=== PATIENT | male | born 1985 | race Caucasian/White ===

== ENCOUNTER 2019-08-15 13:40 | Emergency (ER) | payer OTHER, SELFPAY ==
--- NOTE | ~2019-08-15 | XR_ITS ---
EXAMINATION: XR chest 2V DATE: 08/15/2019 15:06 INDICATION: 5 days of cough and wheezing TECHNIQUE: frontal and lateral views of the chest were obtained. COMPARISON: Chest radiograph dated 05/02/2019 FINDINGS: Interval resolution of prior left lower lobe opacities which may have represented pneumonia. Residual minimal linear atelectasis/scarring more anteriorly at the lingula. No new airspace opacities, pulmo nary edema, pleural effusion or pneumothorax. The cardiomediastinal silhouette is normal. Likely chol ecystectomy clips in the upper abdomen. Mild thoracolumbar spondylosis. IMPRESSION: 1. Unchanged minimal linear discoid atelectasis/scarring at the lingula. No other acute cardiopulmona ry disease. Reviewed, dictated and finalized at location A. HONING MACHINE SET UP OPERATOR IMPRESSION: 1. Unchanged minimal linear discoid atelectasis/scarring at the lingula. No oth er acute cardiopulmonary disease.
[2019-08-15 13:53] VITALS: BP 104/78; PULSE 90; RESP 20; TEMP 36.9; O2SAT 97
--- NOTE | 2019-08-15 14:59 | ED.GENADULT ---
HPI - General Adult General Chief complaint: Upper Respiratory Infection Stated complaint: Sore throat/Congestion/Body aches Time Seen by Provider: 08/15/19 14:59 Source: patient and RN notes reviewed Mode of arrival: ambulatory Limitations: no limitations History of Present Illness HPI narrative: 33-year-old male who presents to express care with complaints of sore throat, body aches, wheezing and cough since . Patient states in the last 24 to 48 hours he is felt more short of breath. Patient states that he has been exposed to influenza at work,many coworkers ill. Patient states that his cough is productive of yellow mucous, has noticed wheezing at times but denies any acute respiratory difficulty, SAO2 97% on room air. MD complaint: cough, sore throat Onset (ago): day(s) (4) Location: head and chest Radiation: non-radiation Severity: moderate Severity scale (1-10): 7 Quality: burning and aching Pain Consistency: constant Relieving factors: none Exacerbating factors: movement Associated symptoms: cough, fever/chills, headaches, malaise and shortness of breath Treatments prior to arrival: NSAID Related Data Allergies Allergy/AdvReac Type Severity Reaction Status Date / Time Sulfa (Sulfonamide Allergy Hives Verified 08/15/19 14:25 Antibiotics) Tetracyclines Allergy Hives Verified 08/15/19 14:25 Review of Systems Review of Systems: Narrative: CONSTITUTIONAL: Low grade fever, chills, or sweats. EYES: Denies visual changes, redness, or discharge. ENT: positive rhinorrhea, congestion, sore throat, no otalgia. CARDIOVASCULAR: Denies chest pain, palpitations, or edema. RESPIRATORY:positive cough or dyspnea with exertion. GASTROINTESTINAL: Denies abdominal pain, nausea, vomiting, or diarrhea. GENITOURINARY: Denies dysuria or hematuria. SKIN: Denies rash or itching. MUSCULOSKELETAL: Denies back pain, joint pain, positive for body aches NEUROLOGIC: Denies headache, numbness, or weakness. PSYCHIATRIC: Denies anxiety or depression. All systems reviewed & are unremarkable except as noted in HPI and below PMFSH Past Medical History Medical History (Updated 08/17/19 @ 11:46 by Brenda Templeton NP) Pneumonia Surgical History Surgical History (Updated 08/17/19 @ 11:45 by Brenda Templeton NP) History of cholecystectomy History of repair of hiatal hernia History of thoracotomy Social History Social History (Updated 08/17/19 @ 11:45 by Brenda Templeton NP) Smoking status: Never smoker Living arrangements: with family Gender identity (if verbalized by the patient): Male Comments At time of signature, agree with nursing past medical, surgical, social history. There is no relevant family history pertinent to the presenting complaint Exam Narrative: Exam Narrative: GENERAL: Well-appearing, well-nourished, and in no acute distress. HEAD: Normocephalic, atraumatic. EYES: PERRLA and EOMI. ENT: Nares red light yellow tinged rhinorrhea no epistaxis. Mucous membranes moist.TM's normal with good light reflex, throat red with no lesions or tonsil swelling, post nasal drainage NECK: Supple.no lymphadenopathy CHEST: Coarse to auscultation. No respiratory distress.Frequent harsh cough that is productive HEART: Regular rate and rhythm. No murmur heard. Normal peripheral pulses. ABDOMEN: Soft, nontender, nondistended, normal active bowel sounds. EXTREMITIES: Normal range of motion. No edema. SKIN: Warm, dry, no rash. NEURO: No focal deficits. Alert and oriented x3. Course Vital Signs Vital signs: Vital Signs Temperature 36.9 C 08/15/19 13:53 Pulse Rate 90 08/15/19 13:53 Respiratory Rate 08/15/19 13:53 Blood Pressure 104/78 08/15/19 13:53 Pulse Oximetry 97 08/15/19 13:53 Temperature 36.9 C 08/15/19 13:53 Pulse Rate 90 08/15/19 13:53 Respiratory Rate 08/15/19 13:53 Blood Pressure 104/78 08/15/19 13:53 Pulse Oximetry 97 08/15/19 13:53 Medical Decision Making Medic
== END 2019-08-15 16:01 | disposition home or self-care (01) ==
PROVIDERS: Emergency Provider Registered Nurse; PCP Internal Medicine
DX: J10.1 Influenza due to other identified influenza virus with other respiratory manifestations (principal); R05 Cough
CPT/HCPCS: 71046; 87804; 99213; G0463

== ENCOUNTER 2021-06-10 12:30 | Emergency (ER) | payer OTHER, SELFPAY ==
--- NOTE | ~2021-06-10 | XR_ITS ---
XR chest 2V DATE: 06/10/2021 13:46 INDICATION: Cough, shortness of breath, left lower lobe crackles TECHNIQUE: 2 views COMPARISON: 08/14/2021 view chest FINDINGS: There is mild infiltrate or atelectasis in the left lower lobe. The lungs are otherwise ge[place] ar. No pleural effusion or pulmonary vascular or pneumothorax. Normal heart size. No hilar or mediast inal enlargement. Status post cholecystectomy. Included skeletal structures are unremarkable. IMPRESSION: Mild infiltrate or atelectasis of the left lower lobe Reviewed, dictated and finalized at location A. MER AND BORER MACHINE OPERATOR
[2021-06-10 12:46] VITALS: BP 114/65; PULSE 67; RESP 14; TEMP 36.3; O2SAT 98
--- NOTE | 2021-06-10 13:42 | ED.URI ---
HPI - URI/Sore Throat General Chief Complaint: Upper Respiratory Infection Stated Complaint: shortness of breath,wheezing Time Seen by Provider: 06/10/21 13:25 Source: patient and RN notes reviewed Mode of arrival: ambulatory Limitations: no limitations History of Present Illness HPI Narrative: Patient presents today complaining of a 10-day history of dry cough, wheezing, shortness of breath. Symptoms have significantly worsened today. States he has been somewhat ill since his COVID-19 vaccine at the end of April. Denies history of asthma or COPD. He is a non-smoker. He has been using Sudafed, DayQuil, and Zyrtec without relief. History of pneumonia. MD elicited complaint: cough Related Data Home Medications Medication Instructions Recorded Confirmed sertraline 50 mg PO DAILY 06/10/21 06/10/21 Allergies Allergy/AdvReac Type Severity Reaction Status Date / Time Sulfa (Sulfonamide Allergy Hives Verified 06/10/21 12:59 Antibiotics) Tetracyclines Allergy Hives Verified 06/10/21 12:59 Review of Systems Review of Systems: CONSTITUTIONAL: Denies body aches, fever, chills, or sweats. EYES: Denies visual changes, redness, or discharge. ENT: Denies rhinorrhea, congestion, sore throat, or otalgia. CARDIOVASCULAR: Denies chest pain, palpitations, or edema. RESPIRATORY: +Cough, wheezing, shortness of breath GASTROINTESTINAL: Denies abdominal pain, nausea, vomiting, or diarrhea. GENITOURINARY: Denies dysuria or hematuria. SKIN: Denies rash, itching, or wounds. MUSCULOSKELETAL: Denies back pain, joint pain, or myalgia. NEUROLOGIC: Denies headache, numbness, tingling, or weakness. PSYCH: Denies depression or anxiety. [facility] Past Medical History Medical History Pneumonia Surgical History Surgical History History of cholecystectomy History of repair of hiatal hernia History of thoracotomy Social History Social History Smoking status: Never smoker Gender identity (if verbalized by the patient): Male Comments At time of signature, I have reviewed and agree with nursing past medical, surgical, social and family history unless otherwise noted. Please see nursing chart for further information. There is no relevant family history pertinent to the presenting complaint Exam Narrative: GENERAL: Well-appearing, well-nourished, and in no acute distress. HEAD: Normocephalic, atraumatic. EYES: EOMI. No redness or drainage. Conjunctivae normal. ENT: Mucous membranes pink and moist. Nares clear. No rhinorrhea. TMs normal bilaterally. Throat normal. Uvula midline. NECK: Normal AROM. Supple. No lymphadenopathy. CHEST: No respiratory distress. Slight crackles in the left lower lobe, otherwise clear. HEART: Regular rate and rhythm. No murmur appreciated. Normal peripheral pulses. EXTREMITIES: Normal range of motion. No edema. SKIN: Warm, dry, no rash. Capillary refill normal. Normal skin turgor. NEURO: No focal deficits. Alert and oriented x3. Gait steady. PSYCH: Normal affect. No signs of depression or anxiety. Course Vital Signs Vital signs: Vital Signs Temperature 97.3 F L 06/10/21 12:46 Pulse Rate 67 06/10/21 12:46 Respiratory Rate 14 06/10/21 12:46 Blood Pressure 114/65 06/10/21 12:46 Pulse Oximetry 98 06/10/21 12:46 Temperature 97.3 F L 06/10/21 12:46 Pulse Rate 67 06/10/21 12:46 Respiratory Rate 14 06/10/21 12:46 Blood Pressure 114/65 06/10/21 12:46 Pulse Oximetry 98 06/10/21 12:46 Reviewed MDM - URI/Sore Throat Differential Diagnosis Differential diagnosis: Likely upper respiratory infection, bronchitis and other (Pneumonia) Imaging Data Radiologist's impression: ITS Impressions Chest X-Ray 06/10/21 13:50 IMPRESSION: Mild infiltrate or atelectasis of the left lower lobe
== END 2021-06-10 14:10 | disposition home or self-care (01) ==
PROVIDERS: Emergency Provider Nurse Practitioner; PCP Internal Medicine
DX: J18.1 Lobar pneumonia, unspecified organism (principal)
CPT/HCPCS: 71046; 99213; G0463

== ENCOUNTER 2022-07-03 11:01 | Emergency (ER) | payer OTHER, SELFPAY ==
--- NOTE | ~2022-07-03 | XR_ITS ---
Clinical Indication: Cough PA and lateral views of the chest: Comparison: 06/10/2021 Findings: The lungs are clear, without evidence of focal consolidation or pleural effusion. Cardiome diastinal silhouette is within normal limits. Bones and soft tissues are unremarkable. Impression: Normal chest. Reviewed, dictated and finalized at [facility]. L OPERATION MANAGER Impression: Normal chest.
[2022-07-03 11:07] VITALS: BP 128/87; PULSE 85; RESP 16; TEMP 36.3; O2SAT 98
--- NOTE | 2022-07-03 11:09 | ED.URI ---
HPI - URI/Sore Throat General Chief Complaint: Upper Respiratory Infection Stated Complaint: Chest Congestion Time Seen by Provider: 07/03/22 11:09 Source: patient Mode of arrival: ambulatory Limitations: no limitations History of Present Illness HPI Narrative: 36-year-old male presents with complaint of cough for 1 month. Reports that he had fever for 24 hours when symptoms 1st started. Taking [id number] cough medications with no relief. Reports the last several days he has felt short of breath with exertion and tight in his chest. Reports history of seasonal pneumonia . Patient does not appear in any respiratory distress, speaking in full sentences. All systems reviewed and negative except as noted above. Related Data Allergies Allergy/AdvReac Type Severity Reaction Status Date / Time Sulfa (Sulfonamide Allergy Hives Verified 07/03/22 11:15 Antibiotics) Tetracyclines Allergy Hives Verified 07/03/22 11:15 Review of Systems Review of Systems: CONSTITUTIONAL: Denies fever, chills, or sweats. EYES: Denies visual changes, redness, or discharge. ENT: Denies rhinorrhea, congestion, sore throat, or otalgia. CARDIOVASCULAR: Denies chest pain, palpitations, or edema. RESPIRATORY: Reports cough and dyspnea With exertion. GASTROINTESTINAL: Denies abdominal pain, nausea, vomiting, or diarrhea. GENITOURINARY: Denies dysuria or hematuria. SKIN: Denies rash or itching. MUSCULOSKELETAL: Denies back pain, joint pain, or myalgia. NEUROLOGIC: Denies headache, numbness, or weakness. PSYCHIATRIC: Denies anxiety or depression. All other systems reviewed are negative, except as documented in HPI. [facility] Past Medical History Medical History Pneumonia Surgical History Surgical History History of cholecystectomy History of repair of hiatal hernia History of thoracotomy Social History Social History Smoking status: Never smoker Gender identity (if verbalized by the patient): Male Comments At time of signature, agree with nursing past medical, surgical, social and family history. There is no relevant family history pertinent to the presenting complaint. Exam Narrative: GENERAL: This is a well-nourished, well-developed patient, in no apparent distress. HEAD: normocephalic, atraumatic. EYES: PERRL. Sclera clear/white. Vision is grossly intact. EARS: External ears normal, auditory canals clear and without drainage, TMs normal without perforation. Hearing grossly intact. NOSE: External nose normal with no obvious nasal discharge, nares without redness, no rhinorrhea. THROAT: Mucous membranes moist, posterior pharynx clear. NECK: Neck supple, non-tender without lymphadenopathy, masses or thyromegaly. CARDIOVASCULAR: Regular rate and rhythm without murmurs, gallops, or rubs. RESPIRATORY: Clear to auscultation. Breath sounds equal bilaterally. No wheezes, rales, or rhonchi. SKIN: warm, Dry, intact with no suspicious lesions or rash, good texture and turgor. NEURO: awake, alert, and oriented to person, place and time. There were no obvious focal neurologic abnormalities. EXTREMITIES: No joint tenderness, effusion, or edema noted. Course Course Level of Care: Express Care Visit Vital Signs Vital signs: Vital Signs Temperature 36.3 C L 07/03/22 11:07 Pulse Rate 85 07/03/22 11:07 Respiratory Rate 16 07/03/22 11:07 Blood Pressure 128/87 07/03/22 11:07 Pulse Oximetry 98 07/03/22 11:07 Oxygen Delivery Room Air 07/03/22 11:07 Temperature 36.3 C L 07/03/22 11:07 Pulse Rate 85 07/03/22 11:07 Respiratory Rate 16 07/03/22 11:07 Blood Pressure 128/87 07/03/22 11:07 Pulse Oximetry 98 07/03/22 11:07 Oxygen Delivery Room Air 07/03/22 11:07 reviewed MDM - URI/Sore Throat MDM Narrative Medical d
== END 2022-07-03 11:56 | disposition home or self-care (01) ==
PROVIDERS: Emergency Provider Nurse Practitioner Family; PCP Internal Medicine
DX: J20.9 Acute bronchitis, unspecified (principal)
CPT/HCPCS: 71046; 99213; G0463

== ENCOUNTER 2023-01-11 13:19 | Emergency (ER) | payer OTHER, SELFPAY ==
[2023-01-11 13:26] VITALS: BP 120/75; PULSE 72; RESP 20; TEMP 36.2; O2SAT 98
--- NOTE | 2023-01-11 13:35 | ED.EAR ---
HPI - Ear Problem General Stated complaint: left ear pain History of Present Illness HPI Narrative: Patient presents with left ear pain. Patient denies any drainage from his ear no recent swimming. No hearing loss. Patient also has some nasal congestion and slight cough. No shortness of breath no chest pain Related Data Allergies Allergy/AdvReac Type Severity Reaction Status Date / Time Sulfa (Sulfonamide Allergy Hives Verified 01/11/23 13:32 Antibiotics) Tetracyclines Allergy Hives Verified 01/11/23 13:32 Review of Systems Review of Systems: CONSTITUTIONAL: Denies fever, chills, or sweats. EYES: Denies visual changes, redness, or discharge. ENT: Denies rhinorrhea, congestion, sore throat, or otalgia. CARDIOVASCULAR: Denies chest pain, palpitations, or edema. RESPIRATORY: Denies cough or dyspnea. GASTROINTESTINAL: Denies abdominal pain, nausea, vomiting, or diarrhea. GENITOURINARY: Denies dysuria or hematuria. SKIN: Denies rash or itching. MUSCULOSKELETAL: Denies back pain, joint pain, or myalgia. NEUROLOGIC: Denies headache, numbness, or weakness. PSYCHIATRIC: Denies anxiety or depression. [facility] Past Medical History Medical History (Reviewed 06/10/21 @ 13:59 by Elise Jameson, [facility], ) Pneumonia Surgical History Surgical History (Reviewed 06/10/21 @ 13:59 by Elise Jameson, [facility], ) History of cholecystectomy History of repair of hiatal hernia History of thoracotomy Social History Social History (Reviewed 06/10/21 @ 13:59 by Elise Jameson, [facility], ) Smoking status: Never smoker Living arrangements: with family Gender identity (if verbalized by the patient): Male Comments At time of signature, agree with nursing past medical, surgical, social and family history. There is no relevant family history pertinent to the presenting complaint Exam Narrative: GENERAL: Well-appearing, well-nourished, and in no acute distress. HEAD: Normocephalic, atraumatic. EYES: PERRLA and EOMI. ENT: Nares clear, no rhinorrhea or epistaxis. Mucous membranes moist. Left ear moderate erythema a a to canal and TM bulging right year canal normal with TM dullness mild maxillary sinus pressure and tenderness NECK: Supple. CHEST: Clear to auscultation. No respiratory distress. HEART: Regular rate and rhythm. No murmur heard. Normal peripheral pulses. ABDOMEN: Soft, nontender, nondistended, normal active bowel sounds. EXTREMITIES: Normal range of motion. No edema. SKIN: Warm, dry, no rash. NEURO: No focal deficits. Alert and oriented x3. Neil Coma Scale Eye Opening: Spontaneous 4 Neil Coma Scale Motor: Obeys Commands 6 Neil Coma Scale Verbal: Oriented 5 Louise Coma Scale Total 15 Course Course Level of Care: Express Care Visit Vital Signs Vital signs: Vital Signs Temperature 36.2 C L 01/11/23 13:26 Pulse Rate 72 01/11/23 13:26 Respiratory Rate 20 01/11/23 13:26 Blood Pressure 120/75 01/11/23 13:26 Pulse Oximetry 98 01/11/23 13:26 Oxygen Delivery Room Air 01/11/23 13:26 Temperature 36.2 C L 01/11/23 13:26 Pulse Rate 72 01/11/23 13:26 Respiratory Rate 20 01/11/23 13:26 Blood Pressure 120/75 01/11/23 13:26 Pulse Oximetry 98 01/11/23 13:26 Oxygen Delivery Room Air 01/11/23 13:26 Medical Decision Making Vital Signs Vital Signs: Vital Signs Temperature 36.2 C L 01/11/23 13:26 Pulse Rate 72 01/11/23 13:26 Respiratory Rate 20 01/11/23 13:26 Blood Pressure 120/75 01/11/23 13:26 Pulse Oximetry 98 01/11/23 13:26 Oxygen Delivery Room Air 01/11/23 13:26 Temperature 36.2 C L 01/11/23 13:26 Pulse Rate 72 01/11/23 13:26 Respiratory Rate 20 01/11/23 13:26 Blood Pressure 120/75 01/11/23 13:26 Pulse Oximetry 98 01/11/23 13:26 Oxygen Delivery Room Air 01/11/23 13:26 Discharge Plan Discharge Clinical Impression: Sinusitis, acute maxillary, Otitis media Patient Disposition: Home, Self-Ca
== END 2023-01-11 13:40 | disposition home or self-care (01) ==
PROVIDERS: Emergency Provider Nurse Practitioner Family; PCP Internal Medicine
DX: J01.00 Acute maxillary sinusitis, unspecified (principal); H66.92 Otitis media, unspecified, left ear
CPT/HCPCS: 99213; G0463

== ENCOUNTER 2023-02-10 21:40 | Emergency (ER) | payer SELFPAY ==
[2023-02-10 21:43] VITALS: BP 128/79; PULSE 87; RESP 14; TEMP 36.4; O2SAT 99
--- NOTE | 2023-02-11 00:43 | PC.NURSE ---
pt. to ed front end ui developer stating he is going to wait at home
== END 2023-02-11 00:43 | disposition left against medical advice (07) ==
PROVIDERS: PCP Internal Medicine
DX: M54.50 Low back pain, unspecified (principal)
CPT/HCPCS: 99199